=== PATIENT | male | born 1965 | race Caucasian/White ===

== ENCOUNTER → 2017-11-03 | Outpatient (CLI) | payer OTHER ==
[~2017-11-03] MED LIST: AMOX500 PO; ATOR40TA PO; HYDACE5 PO; Humalog100 UNIT/3 SC; LISI20 PO; METF500C PO; NEOCOLOTSU -; Robaxin500 MG PO
== END ==
LOC: LAB EV 17:01
DX: R50.9 Fever, unspecified (principal)
CPT/HCPCS: 87070

== ENCOUNTER 2017-11-16 20:07 | Emergency (ER) | payer OTHER ==
[~2017-11-16 20:07] MED LIST changes: -ATOR40TA PO; -Humalog100 UNIT/3 SC; -LISI20 PO; -METF500C PO; -Robaxin500 MG PO
== END 2017-11-16 20:08 | disposition left against medical advice (07) ==
LOC: ER 20:07
DX: Z53.21 Procedure and treatment not carried out due to patient leaving prior to being seen by health care provider (principal)

== ENCOUNTER 2017-11-18 16:04 | Emergency (ER) | payer OTHER ==
[~2017-11-18] VITALS: Ht 172.7 cm; Wt 85.3 kg
[2017-11-18] MEDS ORDERED: METF500C PO (16:28)
[2017-11-18] MEDS ORDERED: ATOR40TA PO (16:29)
[2017-11-18] MEDS ORDERED: Humalog100 UNIT/3 SC (16:29)
[2017-11-18] MEDS ORDERED: LISI20 PO (16:29)
[2017-11-18] MEDS ORDERED: Robaxin500 MG PO (17:05)
== END 2017-11-18 17:18 | disposition home or self-care (01) ==
LOC: ER 16:04
DX: S42.252A Displaced fracture of greater tuberosity of left humerus, initial encounter for closed fracture (principal); F17.200 Nicotine dependence, unspecified, uncomplicated; Z79.84 Long term (current) use of oral hypoglycemic drugs; Z79.899 Other long term (current) drug therapy; Z79.2 Long term (current) use of antibiotics; W22.8XXA Striking against or struck by other objects, initial encounter
CPT/HCPCS: 29105; 73030; 99283

== ENCOUNTER 2019-06-09 10:23 | Day surgery (SDC) | payer OTHER ==
[~2019-06-09] VITALS: Ht 170.2 cm; Wt 89.1 kg
[~2019-06-09 10:23] MED LIST changes: +ATOR40TA PO; +Humalog100 UNIT/3 SC; +LISI20 PO; +METF500C PO; +Robaxin500 MG PO
[2019-06-09] MEDS ORDERED: GLIP10 PO (10:38)
--- NOTE | 2019-06-09 12:17 | NUR ---
06/09/19 1217 Thais Diaz PT DELAYED UNTIL [address] ZARCO D/T DRINKING WATER UNTIL 1000.
== END 2019-06-09 13:07 | disposition home or self-care (01) ==
LOC: ORSCSDS 10:23
PROVIDERS: Internal Medicine Gastroenterology
PROC: 0DBK8ZX Excision of Ascending Colon, Via Natural or Artificial Opening Endoscopic, Diagnostic (ICD-10-PCS; principal; 2019-06-09 11:45)
PROC: 0DBN8ZX Excision of Sigmoid Colon, Via Natural or Artificial Opening Endoscopic, Diagnostic (ICD-10-PCS; principal; 2019-06-09 11:45)
DX: Z12.11 Encounter for screening for malignant neoplasm of colon (principal); D12.2 Benign neoplasm of ascending colon; K63.5 Polyp of colon; K64.8 Other hemorrhoids; E11.9 Type 2 diabetes mellitus without complications; I10 Essential (primary) hypertension; G47.33 Obstructive sleep apnea (adult) (pediatric); Z87.891 Personal history of nicotine dependence; Z79.84 Long term (current) use of oral hypoglycemic drugs; Z79.899 Other long term (current) drug therapy
CPT/HCPCS: 82947; 88305; J2704; J7120